=== PATIENT | male | born 1960 | race African-American/Black ===

== ENCOUNTER 2017-07-24 03:41 | Emergency (ER) | payer OTHER, SELFPAY ==
[2017-07-24 04:09] LABS: Hemoglobin 13.2 g/dL (14.0-18.0); Mean Corpuscular HGB CONC 33.1 g/dL (32.0-36.0); Mean Corpuscular Hemoglobin 30.6 pg (27.0-31.0); Mean Corpuscular Volume 92.4 fl (80.0-94.0); Mean Platelet Volume 7.4 fL (7.4-10.4); Platelet Count 246 thou/uL (130-400); Red Blood Cell (RBC) Count 4.32 mill/uL (4.70-6.10); White Blood Cell (WBC) Count 8.7 thou/uL (4.8-10.8)
[2017-07-24 04:33] LABS: ALT (SGPT) 29 U/L (8-55); AST (SGOT) 32 U/L (5-34); Acetaminophen Less than 6.0 mcg/mL (10.0-30.0); Albumin 3.5 g/dL (3.5-5.0); Alcohol Less than 10 mg/dL (Less than 10); Alkaline Phosphatase 81 U/L (40-150); Anion Gap 16 mmol/L (10-20); BUN (Urea Nitrogen) 19 mg/dL (8.4-25.7); Bilirubin, Total 0.2 mg/dL (0.2-1.2); CK (CPK) 257 U/L (30-200); Calc. Creatinine Clearance 0 mL/min (70-130); Calcium 8.6 mg/dL (7.8-10.44); Carbon Dioxide 22 mmol/L (22-29); Chloride 103 mmol/L (98-107); Estimated GFR-MDRD 66; Glucose 185 mg/dL (70-105); Protein, Total 6.5 g/dL (6.0-8.3); Salicylate Less than 8.0 mg/dL (15.0-30.0); Sodium 137 mmol/L (136-145)
[2017-07-24 04:34] LABS: #Basophils 0.1 thou/uL (0.0-0.2); #Eosinphils 0.3 thou/uL (0.0-0.7); #Lymphocytes 3.7 thou/uL (1.20-3.40); #Monocytes 0.6 thou/uL (0.11-0.59); #Neutrophils 4.1 thou/uL (1.40-6.50); %Basophils 0.6 % (0.0-1.0); %Eosinophils 2.9 % (0.0-10.0); %Lymphocytes 42.5 % (21.0-51.0); %Monocytes 6.6 % (0.0-10.0); %Neutrophils 47.3 % (42.0-75.0)
[2017-07-24] MEDS ORDERED: Morphine 4 MG/ML Carpuject ONE (05:00)
[2017-07-24] MEDS ORDERED: Lorazepam 2 MG/ML VIAL ONE (05:07)
[2017-07-24 05:26] LABS: Amphetamine Not Detected (NotDetected); Barbiturates Screen Not Detected (NotDetected); Benzodiazepine Screen Not Detected (NotDetected); Cocaine Metabolite Screen Detected (NotDetected); Medtox Control Line Valid? VALID (VALID); Medtox Reader # READER 4; Methadone Not Detected (NotDetected); Methamphetamine Not Detected (NotDetected); Opiate Screen Detected (NotDetected); Oxycodone Screen Not Detected (NotDetected); Phencyclidine (PCP) Not Detected (NotDetected); THC/Cannabinoid Screen Not Detected (NotDetected); Tricyclic Screen Detected (NotDetected)
[2017-07-24 05:28] LABS: Bilirubin Negative (Negative); Blood, Urine Negative (Negative); Clarity CLEAR (Clear); Glucose, Urine (Dipstick) Negative (Negative); Leukocyte Negative (Negative); Nitrite Negative (Negative); Protein, Urine (Dipstick) 30 mg/dL (Neg-Trace); Specific Gravity, Urine 1.022 (1.002-1.036); Urobilinogen 0.2 mg/dL (0.2-1.0)
[2017-07-24 05:31] LABS: Bacteria/HPF None Seen HPF (None Seen); Hyaline Casts/LPF 0-3 HYALINE CAST LPF (0-3 Hyaline); Pathc Cast-AUWi Flag 0.13 (0-2.49); Squamous Epithelial None Seen HPF (0-3); WBC/HPF 0-3 HPF (0-3)
[2017-07-24] MEDS ORDERED: Succinylcholine Chloride 20 MG/ML 10 ml SYRINGE FS ONE (06:15)
[2017-07-24] MEDS ORDERED: Calcium Chloride 1 GM/10 ML Abboject SYRINGE ONE (07:00)
[2017-07-24] MEDS ORDERED: Sodium Bicarb 50 MEQ/50 ML Abboject 8.4% SYRINGE ONE (07:00)
[2017-07-24] MEDS ORDERED: Magnesium 5 GM/10 ML Abboject SYRINGE ONE (07:00)
[2017-07-24] MEDS ORDERED: Atropine Sulfate 1 mg/10 ml Syringe ONE (07:00)
[2017-07-24] MEDS ORDERED: EPINEPHrine 1 mg/ml MDV (1ml Charge) ONE (07:00)
[2017-07-24] MEDS ORDERED: Dextrose 50% Abboject 50 ML SYRINGE ONE (07:00)
[2017-07-24] MEDS ORDERED: EPINEPHrine 1 MG/10 ML Abboject SYRINGE ONE (07:00)
--- NOTE | 2017-07-24 07:59 | RAD ---
AP CHEST: History: Chest pain. Date: 07-24-17 Comparison: 08-19-07 FINDINGS: AP chest demonstrates some cardiomegaly. No evidence of pleural effusions seen. No evidence of effusi ons, pneumonia or pneumothorax. IMPRESSION: Cardiomegaly. POS: [facility]
--- NOTE | 2017-07-24 08:07 | CON ---
DATE OF CONSULTATION: 07/24/2017 REASON FOR CONSULTATION: Pulseless electrical activity. HISTORY OF PRESENT ILLNESS: Mr. Quinn Romero is a 57-year-old man who came to the emergency room early this morning after having seizures. The initial EKG did not show any ischemic changes. Then t he patient had another seizure and another EKG showed severe ST elevation in the anterior leads with a right bundle branch block. The patient had pulseless electrical activity. The patient had prolong ed CPR and ultimately a pulse was regained. On examination, is when I arrived, he had no measurable blood pressure, but had a palpable pulse. Th e lungs had diffuse rales. He had an endotracheal tube and was pulmonary edema type material which w as also bloody. The right femoral pulse was palpable. An effort was made to take the patient to the cardiac catheterization lab, but on arrival to the cath eterization lab there was no blood pressure and no palpable pulse. Three rounds of epinephrine were given, CPR was given, bicarbonate was given, efforts were given to resuscitate the patient. Since th ere was no pulse and no blood pressure the patient was returned to the emergency room and additional resuscitative efforts were made which were not successful. ASSESSMENT: 1. Acute myocardial infarction with due to heart failure, extensive myocardial infarction. 2. Also, the patient is positive for cocaine which is certainly a contributory factor in this patien t's .
--- NOTE | 2017-07-24 09:40 | CT ---
PRELIMINARY REPORT/[facility]/EMERGENCY AFTER HOURS PROCEDURE: EXAM: CT Angiography Chest With Intravenous Contrast CLINICAL HISTORY: 57 years old, male; Pain; Chest pain; Type not specified; Abdominal pain; Generalized; Patient HX: R/ O dissection TECHNIQUE: Axial computed tomographic angiography images of the chest with intravenous contrast using pulmonary embolism protocol. CONTRAST: 70 mL of ISOUE administered intravenously. COMPARISON: No relevant prior studies available. FINDINGS: Pulmonary arteries: Unremarkable. No pulmonary embolism. Aorta: No acute findings. No thoracic aortic aneurysm. Lungs: Unremarkable. No mass. No consolidation. Pleural space: Unremarkable. No significant effusion. No pneumothorax. Heart: Coronary calcifications noted No cardiomegaly. No significant pericardial effusion. No evidenc e of RV dysfunction. Bones/joints: No acute fracture. No dislocation. Soft tissues: 4 mm hypodensity in the left lobe of the thyroid Lymph nodes: Unremarkable. No enlarged lymph nodes. A small hiatal hernia is detected. IMPRESSION: No definite aortic dissection or pulmonary embolism Coronary artery disease Small hiatal hernia EXAM: CT Angiography Abdomen With Intravenous Contrast CLINICAL HISTORY: 57 years old, male; Pain; Chest pain; Type not specified; Abdominal pain; Generalized; Patient HX: R/ O dissection TECHNIQUE: Axial computed tomographic angiography images of the abdomen with intravenous contrast. CONTRAST: 70 mL of ISOUE administered intravenously. COMPARISON: No relevant prior studies available. FINDINGS: Lower thorax: No acute findings. Aorta: No acute findings. No abdominal aortic aneurysm. No dissection. Celiac trunk and mesenteric arteries: No acute findings. No occlusion or significant stenosis. Renal arteries: No acute findings. No occlusion or significant stenosis. Liver: Hepatomegaly and diffuse fatty infiltrationNo mass. Gallbladder and bile ducts: Unremarkable. No calcified stones. No ductal dilation. Pancreas: Unremarkable. No ductal dilation. No mass. Spleen: Unremarkable. No splenomegaly. Adrenals: Unremarkable. No mass. Kidneys and ureters: Unremarkable. No hydronephrosis. No solid mass. Stomach and bowel: Colonic diverticulosis noted. No obstruction. Question mild thickening at the davi roduodenal junction versus underdistention Intraperitoneal space: Unremarkable. No significant fluid collection. No free air. Bones/joints: No acute fracture. No dislocation. Soft tissues: Unremarkable. No mass. Lymph nodes: Unremarkable. No enlarged lymph nodes. IMPRESSION: No acute findings in the arteries of the abdomen. Colonic diverticulosis without diverticulitis Question mild thickening at the gastroduodenal junction. Correlate for peptic ulcer disease Thank you for allowing us to participate in the care of your patient. Dictated and Authenticated by: Ray Trejo MD 07/24/2017 5:29 AM Central Time ([place] & [place]) FINAL REPORT BY DR. NERI EMERGENCY AFTER HOURS STUDY CTA THORAX WITH CONTRAST CTA ABDOMEN WITH CONTRAST: (Computed Tomographic Angiography, chest(noncoronary) with contrast material, and image postprocessin g) (Computed Tomographic Angiography, abdomen with contrast material, and image postprocessing) Date: 07/24/17 Time: 0445 hours HISTORY: 57-year-old male with acute, diffuse chest pain. Rule out aortic dissection. TECHNIQUE: IV injection of iodinated contrast: 70 mL Isovue. Arterial phase bolus chasing technique. Scan acquisition from top of top of aortic arch to iliac crests. 3D MIP reconstructions. FINDINGS: This report agrees with the preliminary report by Adriane. IMPRESSION: 1. No aortic dissection, aneurysm, or rupture. 2. Hepatic steatosis. 3. Otherwise no acute findings. 4. Other findings as mentioned in the preliminary report by Adriane. veronica[] POS: [facility]
--- NOTE | 2017-07-24 09:47 | CT ---
PRELIMINARY REPORT/[facility]/EMERGENCY AFTER HOURS PROCEDURE: EXAM: CT Head Without Intravenous Contrast CLINICAL HISTORY: 57 years old, male; Signs and symptoms; Syncope and collapse; Patient HX: S/P seizure TECHNIQUE: Axial computed tomography images of the head/brain without intravenous contrast. COMPARISON: No relevant prior studies available. FINDINGS: Brain: Mild volume loss No hemorrhage. No significant white matter disease. No edema. Ventricles: Unremarkable. No ventriculomegaly. Bones/joints: Unremarkable. No acute fracture. Soft tissues: Mild left occipital scalp swelling Sinuses: Unremarkable as visualized. No acute sinusitis. Mastoid air cells: Unremarkable as visualized. No mastoid effusion. IMPRESSION: No intracranial hemorrhage.Please see discussion above. Thank you for allowing us to participate in the care of your patient. Dictated and Authenticated by: Ray Trejo MD 07/24/2017 5:34 AM Central Time ([place] & [place]) FINAL REPORT HEAD CT WITHOUT CONTRAST: Date: 07/24/17 COMPARISON: 08/29/16. HISTORY: Syncope, collapse, seizure. FINDINGS/IMPRESSION: I agree with the preliminary report given by Adriane. The imaged paranasal sinuses/mastoid air cells are well aerated. There is no displaced calvarial fracture. No intracranial hemorrhage, midline shift, m ass effect, or ventricular enlargement. IMPRESSION: No acute findings. POS: [facility]
[2017-07-24] MEDS ORDERED: ISOVUE-370 76%-LOCM 1 ML ONE (13:55)
--- NOTE | 2017-07-28 17:49 | EKG ---
Test Reason : Blood Pressure : / mmHG Vent. Rate : 094 BPM Atrial Rate : 094 BPM P-R Int : 144 ms QRS Dur : 082 ms QT Int : 394 ms P-R-T Axes : 045 -21 045 degrees QTc Int : 492 ms Normal sinus rhythm Prolonged QT Abnormal ECG Confirmed by JANICE XIAO D.O. ([id number]), gate tender KASIA PARIS ([id number]) on 07/28/2017 5:48:18 PM Referred By: Confirmed By:JANICE XIAO D.O.
--- NOTE | 2017-07-28 17:49 | EKG ---
Test Reason : Blood Pressure : / mmHG Vent. Rate : 086 BPM Atrial Rate : 086 BPM P-R Int : 148 ms QRS Dur : 082 ms QT Int : 412 ms P-R-T Axes : 045 -08 080 degrees QTc Int : 493 ms Normal sinus rhythm Prolonged QT Abnormal ECG Confirmed by JANICE XIAO D.O. ([id number]), rewrite editor KASIA PARIS ([id number]) on 07/28/2017 5:48:17 PM Referred By: Confirmed By:JANICE XIAO D.O.
--- NOTE | 2017-07-28 18:06 | EKG ---
Test Reason : STEMI Blood Pressure : / mmHG Vent. Rate : 036 BPM Atrial Rate : 000 BPM P-R Int : 000 ms QRS Dur : 148 ms QT Int : 480 ms P-R-T Axes : 000 -65 -05 degrees QTc Int : 371 ms Idioventricular rhythm Left axis deviation Right bundle branch block Minimal voltage criteria for LVH, may be normal variant ST elevation consider lateral injury or acute infarct * ACUTE CO * Abnormal ECG Confirmed by JANICE XIAO D.O. ([id number]), medical editor KASIA PARIS ([id number]) on 07/28/2017 6:06:00 PM Referred By: DAMEON Confirmed By:JANICE IXAO D.O.
== END 2017-07-24 07:13 | disposition expired ==
LOC: ERS 03:41 → UNDOADMIN 06:18 → CCU 06:18 → ERS 07:13 → SURG A 18:23 → CCU 18:23
DX: I21.3 ST elevation (STEMI) myocardial infarction of unspecified site (principal); M10.9 Gout, unspecified; I10 Essential (primary) hypertension; F41.9 Anxiety disorder, unspecified; R73.03 Prediabetes; F32.9 Major depressive disorder, single episode, unspecified; Z79.84 Long term (current) use of oral hypoglycemic drugs; Z79.899 Other long term (current) drug therapy
CPT/HCPCS: 31500; 36415; 70450; 71045; 71275; 80053; 80306; 80307; 81003; 81015; 82550; 83605; 84146; 84443; 85025; 92950; 93005; 94760; 96361; 96374; 96375; 96376; 99292; J0171; J0282; J0461; J1644; J2060; J2270; J3475